=== PATIENT | male | born 1960 | race Caucasian/White ===

== ENCOUNTER 2019-02-20 12:06 | Emergency (ER) | payer OTHER ==
[~2019-02-20] VITALS: Ht 180.3 cm; Wt 99.8 kg
[~2019-02-20 12:06] MED LIST: Bactrim Ds Tab1 EACH PO; CEPH500 PO; CRUTCH USE; Cleocin HCl300 MG PO; DIPH50 PO; HYDACE5 PO; HYDHCL25 PO; IBUP400 PO; METPRE4DP PO; MUPI2TC TOP; NAPR550 PO; Prednisone10 MG PO; Prednisone20 MG PO; Pseudoephedrine30 MG PO; SULTRIDS PO; Ultram50 MG PO
[2019-02-20 13:27] LABS: Alanine Aminotransfer (ALT/SGP 29 U/L (12-78); Albumin, Blood 3.2 g/dL (3.4-5.0); Albumin/Globulin Ratio 0.7 (0.8-1.8); Alk Phos 89 U/L (50-136); Anion Gap 6 mmol/L (6-16); Aspartate Aminotrans (AST/SGOT 14 U/L (12-37); Bilirubin, Total 0.5 mg/dL (0.1-1.0); Blood Urea Nitrogen 20 mg/dL (8-24); Bun/Creatinine Ratio 27.4 (12.0-20.0); CO2, Blood 29 mmol/L (21-32); Calcium, Blood 8.6 mg/dL (8.5-10.1); Chloride, Blood 103 mmol/L (98-108); Creatinine, Blood 0.73 mg/dL (0.60-1.20); Globulin, Blood 4.5 g/dL (2.2-4.0); Glomerular Filtration Rate >60 (60-); Glucose, Blood 105 mg/dL (70-99); Potassium, Blood 3.9 mmol/L (3.5-5.5); Sodium, Blood 138 mmol/L (136-145); Total Protein, Blood 7.7 g/dL (6.4-8.2)
[2019-02-20 14:50] LABS: BASOPHILS ABSOLUTE AUTO 0.03 K/mm3 (0.00-0.23); BASOPHILS PERCENT AUTO 0 % (0-2); EOSINOPHILS ABSOLUTE AUTO 0.14 K/mm3 (0.00-0.68); EOSINOPHILS PERCENT AUTO 1 % (0-6); Hemoglobin 12.6 g/dL (13.5-17.5); IMMATURE GRAN ABSOLUTE AUTO 0.05 K/mm3 (0.00-0.10); IMMATURE GRAN PERCENT AUTO 0 % (0-1); LYMPHOCYTES ABSOLUTE AUTO 0.83 K/mm3 (0.84-5.20); LYMPHOCYTES PERCENT AUTO 7 % (21-46); MONOCYTES ABSOLUTE AUTO 1.29 K/mm3 (0.16-1.47); MONOCYTES PERCENT AUTO 11 % (4-13); Mean Corpuscular HGB 29.4 pg (26.0-34.0); Mean Corpuscular HGB Conc 31.5 g/dL (31.5-36.5); Mean Corpuscular Volume 93 fL (80-100); Mean Platelet Volume 10.2 fL (9.1-12.4); NEUTROPHILS PERCENT AUTO 81 % (41-73); Platelet Count 275 K/mm3 (150-400); RDW Coefficient Variation 14.2 % (11.7-14.2); RDW Standard Deviation 48.8 fL (35.1-46.3); Red Blood Cell Count 4.29 M/mm3 (4.30-5.90); White Blood Cell Count 12.04 K/mm3 (4.00-11.30)
[2019-02-20] MEDS ORDERED: Bactrim Ds Tab1 EACH PO (15:41)
[2019-02-20] MEDS ORDERED: Keflex500 MG PO (15:41)
[2019-02-20] MEDS ORDERED: Triamcinolone A15 GM TOP (15:41)
== END 2019-02-20 17:42 | disposition home or self-care (01) ==
LOC: ER 12:06
PROVIDERS: Physician Assistant
DX: L03.116 Cellulitis of left lower limb (principal); L02.416 Cutaneous abscess of left lower limb; R60.0 Localized edema
CPT/HCPCS: 36415; 80053; 85025; 87070; 87075; 87077; 87147; 87186; 87205; 93971; 96365; 99284-25; J0690

== ENCOUNTER 2019-03-13 08:00 | Day surgery (SDC) | payer OTHER ==
[~2019-03-13 08:00] MED LIST changes: +Keflex500 MG PO; +Triamcinolone A15 GM TOP
== END 2019-03-13 22:47 | disposition home or self-care (01) ==
LOC: WOUND 08:00
DX: L97.822 Non-pressure chronic ulcer of other part of left lower leg with fat layer exposed (principal); S30.810A Abrasion of lower back and pelvis, initial encounter; L29.9 Pruritus, unspecified; E78.5 Hyperlipidemia, unspecified
CPT/HCPCS: G0463

== ENCOUNTER 2019-03-20 08:00 | Day surgery (SDC) | payer OTHER | END 2019-03-20 23:03 | disposition home or self-care (01) | LOC: WOUND 08:00 | DX: L97.222 Non-pressure chronic ulcer of left calf with fat layer exposed (principal); L97.822 Non-pressure chronic ulcer of other part of left lower leg with fat layer exposed; L98.429 Non-pressure chronic ulcer of back with unspecified severity; L29.9 Pruritus, unspecified; E78.5 Hyperlipidemia, unspecified | CPT/HCPCS: G0463 ==

== ENCOUNTER 2020-01-12 08:03 | Emergency (ER) | payer OTHER ==
[~2020-01-12] VITALS: Ht 180.3 cm; Wt 104.3 kg
[2020-01-12] MEDS ORDERED: VALACYCLOVIR1000 MG PO (08:33)
[2020-01-12] MEDS ORDERED: Prednisone20 MG PO (08:33)
[2020-01-12] MEDS ORDERED: OPTLUBOPOB RIGHTEYE (08:47)
== END 2020-01-12 09:18 | disposition home or self-care (01) ==
LOC: ER 08:03
DX: G51.0 Bell's palsy (principal); Z79.899 Other long term (current) drug therapy
CPT/HCPCS: 99283

== ENCOUNTER → 2020-10-01 | Outpatient (CLI) | payer OTHER ==
[~2020-10-01] MED LIST changes: +DELTASONE20 MG PO; +OPTLUBOPOB RIGHTEYE; +VALACYCLOVIR1000 MG PO
== END ==
LOC: LAB SHORT 14:12 → LAB 14:12
DX: L97.829 Non-pressure chronic ulcer of other part of left lower leg with unspecified severity (principal); L30.2 Cutaneous autosensitization; B35.3 Tinea pedis; L81.4 Other melanin hyperpigmentation; D22.5 Melanocytic nevi of trunk; D22.62 Melanocytic nevi of left upper limb, including shoulder; L82.1 Other seborrheic keratosis; L72.0 Epidermal cyst; R60.0 Localized edema
CPT/HCPCS: 87070; 87077; 87147; 87186; 87205

== ENCOUNTER 2021-02-12 08:08 | Emergency (ER) | payer OTHER ==
[~2021-02-12] VITALS: Ht 177.8 cm; Wt 106.6 kg
[2021-02-12] MEDS ORDERED: MOXIOPS RIGHTEYE (09:46)
[2021-02-12] MEDS ORDERED: KETOROLAC TROMET5 ML TOP (09:46)
== END 2021-02-12 10:06 | disposition home or self-care (01) ==
LOC: ER 08:08
DX: T26.11XA Burn of cornea and conjunctival sac, right eye, initial encounter (principal); X18.XXXA Contact with other hot metals, initial encounter
CPT/HCPCS: 99283; A9270

== ENCOUNTER 2023-04-26 13:42 | Emergency (ER) | payer OTHER ==
[~2023-04-26] VITALS: Ht 177.8 cm; Wt 111.1 kg
[~2023-04-26 13:42] MED LIST changes: +KETOROLAC TROMET5 ML TOP; +MOXIOPS RIGHTEYE
[2023-04-26 14:16] VITALS: BP 176/101
[2023-04-26] MEDS ORDERED: Prednisone20 MG PO (14:36)
== END 2023-04-26 22:08 | disposition home or self-care (01) ==
LOC: ER 13:42
DX: L20.9 Atopic dermatitis, unspecified (principal)
CPT/HCPCS: 99283

== ENCOUNTER → 2023-05-03 | Outpatient (CLI) | payer OTHER | END | disposition home or self-care (01) | LOC: LAB SHORT 16:49 → LAB 16:49 | DX: L03.114 Cellulitis of left upper limb (principal); L03.113 Cellulitis of right upper limb; L01.1 Impetiginization of other dermatoses; L30.9 Dermatitis, unspecified; L50.9 Urticaria, unspecified; L03.119 Cellulitis of unspecified part of limb | CPT/HCPCS: 87070; 87075; 87077; 87147; 87186; 87205 ==